=== PATIENT | male | born 1950 | race Caucasian/White ===

== ENCOUNTER → 2016-06-13 | Outpatient (CLI) | payer OTHER ==
[~2016-06-13] MED LIST: IOPAMIDOL (ISOVUE-370) 150 ML BTL IV ONE
== END ==
LOC: FIMAGING 09:48
PROVIDERS: ATTEND Internal Medicine Cardiovascular Disease
DX: I25.41 Coronary artery aneurysm (principal); Q27.9 Congenital malformation of peripheral vascular system, unspecified; I51.7 Cardiomegaly
CPT/HCPCS: 71275; Q9967